=== PATIENT | male | born 1970 | race African-American/Black ===

== ENCOUNTER 2024-06-27 09:57 | Inpatient (IN) | payer OTHER ==
[~2024-06-27] VITALS: Ht 170.2 cm; Wt 69.9 kg
[2024-06-27 10:56] LABS: BASOPHILS % 0.7 % (0.0-2.0); EOSINOPHILS % 4.3 % (0.0-5.0); HEMATOCRIT. 42.1 % (42.0-52.0); HEMOGLOBIN. 13.4 g/dL (14.0-18.0); LYMPHOCYTES % 41.9 % (20.0-50.0); MEAN CORPUSCULAR HEMOGLOBIN 27.2 pg (28.0-32.0); MEAN CORPUSCULAR HGB CONC 31.7 g/dL (31.0-37.0); MEAN CORPUSCULAR VOLUME 85.7 fL (80.0-94.0); MONOCYTES % 6.1 % (2.0-8.0); PLATELET 196 x1000/uL (130-400); RED BLOOD CELL COUNT 4.92 mill/uL (4.7-6.1); RED CELL DISTRIBUTION WIDTH 15.3 % (11.6-14.6); WHITE BLOOD COUNT 4.2 x1000/uL (4.5-11.0)
[2024-06-27 10:58] LABS: CHLORIDE 107 mEq/L (98-107); SODIUM 141 mEq/L (136-145)
[2024-06-27 10:59] LABS: CARBON DIOXIDE 28 mEq/L (21-32)
[2024-06-27 11:00] LABS: CALCIUM 9.5 mg/dL (8.7-10.4)
[2024-06-27 11:04] LABS: CREATININE 1.3 mg/dL (0.6-1.3); GLUCOSE 93 mg/dL (70-105); UREA NITROGEN BLOOD 11 mg/dL (9-23)
[2024-06-27 11:09] LABS: TROPONIN I HIGH SENSITIVITY < 4 ng/L (3.0-53)
[2024-06-27] MEDS: MECLIZINE 25MG TABLET PO ONE (11:30)
[2024-06-27] MEDS: SODIUM CHLORIDE 0.9% 1,000 ML IV ONE (11:30)
[2024-06-27] MEDS ORDERED: MAGNESIUM/ALUMINUM HYDROXIDE/SIMETHICONE 30ML UDC PO PRN (12:15)
[2024-06-27] MEDS ORDERED: ACETAMINOPHEN 325MG TABLET PO PRN ×2 (12:15)
[2024-06-27] MEDS ORDERED: IPRATROPIUM/ALBUTEROL 0.5-3(2.5)MG/3ML NEB HHN PRN (12:15)
[2024-06-27] MEDS ORDERED: CLONIDINE 0.1MG TABLET PO PRN (12:15)
[2024-06-27] MEDS ORDERED: DOCUSATE SODIUM 100MG CAPSULE PO PRN (12:15)
[2024-06-27] MEDS ORDERED: GUAIFENESIN 200MG/10ML SUGAR FREE UDC PO PRN (12:15)
[2024-06-27] MEDS ORDERED: MECLIZINE 25MG TABLET PO PRN (12:30)
[2024-06-27] MEDS ORDERED: DEXTROSE 50% WATER 50ML SYRINGE IV PRN (12:30)
[2024-06-27] MEDS: BLOOD SUGAR DIAGNOSTIC STRIP TEST SCH (13:00)
[2024-06-27] MEDS: INSULIN LISPRO 100 UNITS/ML SUBCUT SCH (14:53)
[2024-06-27 22:10] LABS: CREATINE KINASE 99 IU/L (46-171)
[2024-06-27] MEDS: MECLIZINE 25MG TABLET PO SCH (22:25)
[2024-06-28] VITALS (9 sets, daily range): BP systolic 96–115; BP diastolic 52–73; PULSE 58–77; RESP 16–20; TEMP 36.44736–36.8072; O2SAT 98–100
[2024-06-28] MEDS: MULTIVITAMINS,THER W-MINERALS TABLET PO SCH (07:26)
[2024-06-28 08:45] LABS: BASOPHILS % 0.7 % (0.0-2.0); EOSINOPHILS % 5.5 % (0.0-5.0); HEMATOCRIT. 45.1 % (42.0-52.0); HEMOGLOBIN. 14.1 g/dL (14.0-18.0); LYMPHOCYTES % 53.4 % (20.0-50.0); MEAN CORPUSCULAR HEMOGLOBIN 27.2 pg (28.0-32.0); MEAN CORPUSCULAR HGB CONC 31.2 g/dL (31.0-37.0); MEAN PLATELET VOLUME 8.1 fl (7.4-10.4); MONOCYTES % 7.7 % (2.0-8.0); NEUTROPHILS % 32.7 % (40.0-76.0); PLATELET 179 x1000/uL (130-400); RED BLOOD CELL COUNT 5.19 mill/uL (4.7-6.1); RED CELL DISTRIBUTION WIDTH 15.6 % (11.6-14.6); WHITE BLOOD COUNT 4.8 x1000/uL (4.5-11.0)
[2024-06-28 08:57] LABS: CARBON DIOXIDE 28 mEq/L (21-32); CHLORIDE 108 mEq/L (98-107); POTASSIUM 4.3 mEq/L (3.5-5.1); SODIUM 143 mEq/L (136-145)
[2024-06-28 08:58] LABS: CALCIUM 9.8 mg/dL (8.7-10.4)
[2024-06-28 09:03] LABS: CREATININE 1.3 mg/dL (0.6-1.3); GLUCOSE 74 mg/dL (70-105); TRIGLYCERIDE 83 mg/dL (0-150); UREA NITROGEN BLOOD 13 mg/dL (9-23)
[2024-06-28 09:04] LABS: CREATINE KINASE 99 IU/L (46-171); LDL CHOLESTEROL 73 mg/dL (5-100)
[2024-06-28 09:05] LABS: CHOLESTEROL 150 mg/dL (<200); HDL CHOLESTEROL 54 mg/dL (>55); PHOSPHORUS 4.3 mg/dL (2.5-4.9)
[2024-06-28 09:08] LABS: THYROID STIMULATING HORMONE 2.38 uIU/mL (0.55-4.78)
[2024-06-28] MEDS: SODIUM CHLORIDE 0.45% 1,000 ML IV SCH (11:54)
[2024-06-28] MEDS ORDERED: METF-414 MT (14:21)
[2024-06-28 16:13] LABS: *AMPHETAMINES SCREEN URINE NEGATIVE (NEGATIVE)
[2024-06-28 16:14] LABS: *BARBITURATES SCREEN URINE NEGATIVE (NEGATIVE); *BENZODIAZEPINES SCREEN URINE NEGATIVE (NEGATIVE); *COCAINE SCREEN URINE NEGATIVE (NEGATIVE); CANNABINOID URINE SCREEN NEGATIVE (NEGATIVE); METHADONE URINE SCREEN NEGATIVE (NEGATIVE); OPIATES URINE SCREEN NEGATIVE (NEGATIVE); PHENCYCLIDINE URINE SCREEN NEGATIVE (NEGATIVE)
[2024-06-28 16:15] LABS: ECSTASY MDMA SCREEN URINE NEGATIVE (NEGATIVE)
[2024-06-28 17:50] LABS: HEPATITIS B SURFACE ANTIGEN NEGATIVE (Negative)
[2024-06-28 18:11] LABS: HEPATITIS C AB NON REACTIVE (Neg) (Negative)
[2024-06-29] VITALS: BP 106/74; PULSE 57; RESP 20; TEMP 37.61412; O2SAT 98
[2024-06-29 04:00] VITALS: BP 103/69; PULSE 66; RESP 18; TEMP 36.72516; O2SAT 98
[2024-06-29 08:00] VITALS: BP 118/79; PULSE 62; RESP 18; TEMP 36.33624; O2SAT 100
[2024-06-29] MEDS: MECLIZINE 25MG TABLET PO SCH (09:54)
[2024-06-29] MEDS ORDERED: MECL-299 PO (11:09)
[2024-06-29 12:00] VITALS: BP 120/81; PULSE 79; RESP 20; TEMP 36.3918; TEMP 36.39180; O2SAT 99
[2024-06-29 12:54] VITALS: BP 130/84; PULSE 74; TEMP 97.9; O2SAT 97
== END 2024-06-29 17:07 | disposition home or self-care (01) | DRG 74 ==
LOC: ER 09:57 → 5WST 12:00 → EDBEDREQTM 12:06 → EDBEDREQ 12:06 → 7WST 06-28 09:57
PROVIDERS: ADMIT Internal Medicine; ATTEND Internal Medicine
DX: G90.9 Disorder of the autonomic nervous system, unspecified (principal); H81.10 Benign paroxysmal vertigo, unspecified ear; E11.9 Type 2 diabetes mellitus without complications; D64.9 Anemia, unspecified
CPT/HCPCS: 36415; 70551; 71045; 80048; 80061; 80305; 82550; 82962; 83036; 83735; 83880; 84100; 84443; 84484; 85025; 86705; 87340; 93005; 99285; J1815; J7030; J8597